=== PATIENT | male | born 1980 | race Caucasian/White ===

== ENCOUNTER 2025-06-01 09:42 | Outpatient (CLI) | payer BC, SELFPAY ==
--- NOTE | 2025-06-01 11:42 | P.ANES_ITS ---
Anesthesia Charges Start Date/Time Anesthesia Start Date: 06/01/25 Anesthesia Start Time: 11:05 Stop Date/Time Anesthesia Stop Date: 06/01/25 Anesthesia Stop Time: 11:41 Coding CPT Codes CPT Codes: JS LWR INTST NDRI NOS - [id number] ([id number]) P1 - NORMAL HEALTHY PATIENT, QX - SOCIAL WORK THERAPIST SVRaysa W/ MED DIRECTION, QK - PALLIATIVE MEDICINE PHYSICIAN 2-4 CNCRNT JS PROC
--- NOTE | 2025-06-01 11:42 | W.ANESCHARGE ---
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
--- NOTE | 2025-06-01 12:02 | P.ANES_ITS ---
Anesthesia Charges Start Date/Time Anesthesia Start Date: 06/01/25 Anesthesia Start Time: 11:05 Stop Date/Time Anesthesia Stop Date: 06/01/25 Anesthesia Stop Time: 11:41 Coding CPT Codes CPT Codes: JS LWR INTST NDPA NOS - [id number] ([id number]) P1 - NORMAL HEALTHY PATIENT, QK - HUMAN RESOURCES EXECUTIVE ASSISTANT 2-4 CNCRNT ANES PROC, QX - ROUTE AIDE SVC W/ MED DIRECTION
--- NOTE | 2025-06-01 12:02 | W.ANESCHARGE ---
Anesthesia Charges Start Date/Time Anesthesia Start Date: 06/01/25 Anesthesia Start Time: 11:05 Stop Date/Time Anesthesia Stop Date: 06/01/25 Anesthesia Stop Time: 11:41 Coding CPT Codes CPT Codes: JS LWR INTST NDSD NOS - [id number] ([id number]) P1 - NORMAL HEALTHY PATIENT, QK - PLANT AND EQUIPMENT WORKER 2-4 CNCRNT ANES PROC, QX - GAME FARM HELPER SVC W/ MED DIRECTION
== END 2025-06-01 09:43 | disposition home or self-care (01) ==
LOC: OP CLINIC 09:42
PROVIDERS: PCP Family Medicine; Visit Provider Surgery
DX: Z12.11 Encounter for screening for malignant neoplasm of colon (principal); D12.0 Benign neoplasm of cecum; D12.2 Benign neoplasm of ascending colon; D12.3 Benign neoplasm of transverse colon
CPT/HCPCS: 00811; 00812; 45385; 88305; J2704